=== PATIENT | male | born 1960 | race Caucasian/White ===

== ENCOUNTER 2017-11-06 21:56 | Emergency (ER) | payer MEDICARE ==
[~2017-11-06] VITALS: Ht 170.2 cm; Wt 62.6 kg
[2017-11-06 22:45] VITALS: BP 107/67
[2017-11-06] MEDS ORDERED: HYDROmorphone 1mg/ml Carpuject IVP ONE (23:00)
[2017-11-07] MEDS ORDERED: Vancomycin 1gm inj IVPB ONE
[2017-11-07] MEDS ORDERED: Vancomycin 1 GM in D5W 275 ML IVPB ONE ×2
[2017-11-07 01:50] VITALS: BP 110/68
[2017-11-07 02:00] VITALS: BP 110/68
--- NOTE | 2017-11-07 04:41 | Emergency Room Report ---
History of Present Illness General Chief Complaint: Pain Source: Patient Present Illness HPI 57-year-old male presents ED complaining of left shoulder pain. Partner at bedside states that patient had surgery to his left shoulder proximal one month ago. Said persistent pain and drainage since surgery. Was seen at multiple urgent cares and ERs since the surgery. Was seen by his orthopedic surgeon today who said he will take patient to the OR tomorrow for a washout. Told patient to come to [facility] today for IV pain medication and antibiotics. Surgeon is Dr. Cuellar. States pain is a 10 out of 10, sharp nonradiating. Denies fevers or chills. Denies chest pain or shortness of breath. No other aggravating relieving factors. Denies any other associated symptoms Allergies: Coded Allergies: SHELLFISH DERIVED (Verified Allergy, Unknown, 11/06/17) Patient History Past Medical History: none Past Surgical History: other - L shoulder surgery Pertinent Family History: none Social History: Denies: smoking, alcohol use, drug use Immunizations: UTD Reviewed Nursing Documentation: PMH: Agreed, PSxH: Agreed Nursing Documentation-PMH Hx Cardiac Problems: Yes - A FIB Hx Neurological Problems: Yes - CERVICAL FUSION Review of Systems All Other Systems: negative except mentioned in HPI Physical Exam Vital Signs Date Time Temp Pulse Resp B/P (MAP) Pulse Ox O2 Delivery O2 Flow Rate FiO2 11/06/17 22:19 98.2 93 16 104/63 93 Room Air 98.2 Sp02 EP Interpretation: reviewed, normal General Appearance: alert, GCS 15, non-toxic, mild distress Head: normocephalic Eyes: bilateral eye normal inspection, bilateral eye PERRL ENT: normal ENT inspection Neck: normal inspection Respiratory: normal inspection Cardiovascular #1: normal inspection Gastrointestinal: normal inspection Rectal: deferred Genitourinary: no CVA tenderness Musculoskeletal: decreased range of motion, tender - L shoulder, serous drainage noted Neurologic: alert, oriented x3, responsive, motor strength/tone normal, sensory intact, speech normal Psychiatric: normal inspection Skin: normal inspection Lymphatic: normal inspection Medical Decision Making Diagnostic Impression: Primary Impression: Postoperative pain ER Course 57-year-old male presents ED complaining of left shoulder pain status post's surgery 1 month Diagnosispostoperative pain, postop infection, abscess Patient placed on stretcher. After initial history physical exam reveals male in mild distress. There is serous drainage coming from the left shoulder. Limited range of motion secondary to pain. No induration or erythema. No fluctuance. I attempted to contact Dr. Cuellar multiple times through his answering service but unable to reach him. Patient states that he is going for a washout in the morning. Is only here for pain medication and some IV antibiotics Patient given IV Dilaudid, given IV vancomycin. On reassessment patient feels much better. Wishes to be discharged Patient is afebrile, stable vitals, appears nontoxic. Given the patient has plan for OR washout in the morning I believe patient can be safely discharged Diagnosispostoperative pain Stable and discharged to home. Follow-up with orthopedics. Return to ED if symptoms recur or worsen Last Vital Signs Date Time Temp Pulse Resp B/P (MAP) Pulse Ox O2 Delivery O2 Flow Rate FiO2 11/07/17 02:00 98.1 88 16 110/68 97 Room Air 98.1 Status: improved Disposition: HOME, SELF-CARE Condition: Stable Referrals: NON PHYSICIAN (PCP) SANYA CUELLAR Patient Instructions: Shoulder Pain, [id number] KATIE BANKS M.D. Nov 07, 2017 04:40
== END 2017-11-07 02:00 | disposition home or self-care (01) ==
LOC: EMR 22:35
DX: G89.18 Other acute postprocedural pain (principal); M25.512 Pain in left shoulder; I48.91 Unspecified atrial fibrillation; Z91.013 Allergy to seafood; Z98.1 Arthrodesis status
CPT/HCPCS: 96361; 96374; 99284; J1170; J3370